=== PATIENT | female | born 1975 | race American Indian/Alaskan Native ===

== ENCOUNTER 2020-01-23 13:14 | Emergency (ER) | payer BC ==
[2020-01-23] MEDS ORDERED: hydrALAZINE 20 MG/1 ML INJ IV ONE ×2 (14:07→15:11)
[2020-01-23] MEDS ORDERED: methylPREDNISolone Sod Succinate 125 MG/2 ML INJ IV ONE (14:07)
[2020-01-23] MEDS ORDERED: ALBUTEROL 2.5 MG/3 ML NEBU IH ONE ×2 (14:08→16:58)
[2020-01-23] MEDS ORDERED: IPRATROPIUM 0.02% NEBU 2.5 ML IH ONE (14:08)
--- NOTE | 2020-01-23 14:26 | Emergency Department Report ---
HPI - General Chief Complaint: Dyspnea/Respdistress Time Seen by Provider: 01/23/20 13:53 - HPI HPI: 44-year-old -[place] female presents to the emergency department with a complaint of a 2-week history of shortness of breath, wheezing, coughing that she says is due to her COPD. The patient is a tobacco smoker and stopped smoking about 2 days ago. She also has a history of hypertension and presents with extremely elevated blood pressure. However she has been out of her blood pressure medications for the past 2 weeks. She does not have a primary care physician or jet man. No recent travel or sick contacts at home. She denies any fever, chest pain, nausea, vomiting or diaphoresis but does have a mixed dry and productive cough. ED Past Medical Hx - Past Medical History Previous Medical History?: Yes Hx Hypertension: Yes Hx COPD: Yes - Social History Smoking Status: Current Every Day Smoker Substance Use Type: Alcohol - Medications Home Medications: Home Medications Medication Instructions Recorded Confirmed Last Taken Type Albuterol INH(or & Nicu Only) 2 puff IH QID PRN #8.5 gram 01/23/20 Unknown Rx [ProAir HFA Inhaler] Furosemide [Lasix] 20 mg PO QDAY 01/23/20 01/23/20 01/16/20 History Potassium Citrate [Potassium 20 meq PO QDAY 01/23/20 01/23/20 01/16/20 History Citrate ER] amLODIPine 10 mg PO QDAY #30 01/23/20 Unknown Rx hydrALAZINE [Apresoline TAB] 10 mg PO TID #90 01/23/20 Unknown Rx predniSONE [Deltasone] 20 mg PO QDAY #4 tab 01/23/20 Unknown Rx ED Review of Systems ROS: Stated complaint: VICKY Other details as noted in HPI Comment: All other systems reviewed and negative Constitutional: denies: chills, fever Eyes: denies: eye pain, vision change ENT: denies: ear pain, throat pain Respiratory: cough, wheezing Cardiovascular: denies: chest pain, palpitations Gastrointestinal: denies: abdominal pain, vomiting Genitourinary: denies: dysuria, discharge Musculoskeletal: denies: back pain, arthralgia Skin: denies: rash, lesions Neurological: denies: headache, weakness Physical Exam - Physical Exam Vital Signs: Vital Signs 05/27/20 13:17 Temperature 97.8 F Pulse Rate 87 Respiratory 18 Rate Blood Pressure 262/122 O2 Sat by Pulse 97 Oximetry Physical Exam: GENERAL: The patient is well-developed well-nourished. HENT: Normocephalic. Atraumatic. Patient has moist mucous membranes. EYES: Extraocular motions are intact. NECK: Supple. Trachea is midline. CHEST/LUNGS: Mild wheezing throughout the chest. Mild tachypnea but no accessory muscle use. No cough heard during examination. There is no respira tory distress noted. HEART/CARDIOVASCULAR: Regular. There is no tachycardia. There is no murmur. ABDOMEN: Abdomen is soft, nontender. Patient has normal bowel sounds. There is no abdominal distention. SKIN: Skin is warm and dry. NEURO: The patient is awake, alert, and oriented. The patient is cooperative. Normal speech. MUSCULOSKELETAL: There is no tenderness or deformity. There is no evidence of acute injury. ED Course Vital Signs 01/23/20 13:17 Temperature 97.8 F Pulse Rate 87 Respiratory 18 Rate Blood Pressure 262/122 O2 Sat by Pulse 97 Oximetry ED Medical Decision Making - Lab Data Result diagrams: 01/23/20 14:47 01/23/20 14:47 - Radiology Data Radiology results: image reviewed interpreted by me: Chest x-ray does not show any acute process. There are no pleural effusions, o bvious pneumonia and there is no pneumothorax. - Medical Decision Making This patient presents to the emergency department with a two-week history of shortness of breath, wheezing and coughing. On examination she has some mild wheezing throughout the chest but does not appear in any respiratory or acute distress. Chest x-ray does not show any pneumonia, pleural effusions, or any other acute process. The patient received Solu-Medrol and a breathing treatment and upon reevaluation she is feeling improved. The patient presents with extremely elevated blood pressure but has been noncompliant with her medications over the past 2-week. She was given a few doses of IV antihypertensive medication with some improvement. Patient will be discharged home with a refill of her blood pressure medications, and albuterol inhaler, and a course of steroids. She has been given referrals for primary care. She will return to the emergency department with any worsening of her symptoms or any acute distress. Critical Care Time: No Critical care attestation.: If time is entered above; I have spent that time in minutes in the direct care of this critically ill patient, excluding procedure time. ED Disposition Clinical Impression: COPD exacerbation, Noncompliance with medication regimen Hypertension Qualifiers: Hypertension type: essential hypertension Qualified Code(s): I10 - Essential (primary) hypertension Disposition: TO HOME OR SELFCARE Is pt being admited?: No Condition: Stable Instructions: Chronic Obstructive Pulmonary Disease (ED), Hypertension (ED) Additional Instructions: Please follow-up with a primary care physician in the next few days. Return to the emergency department with any worsening of your symptoms or any acute distress. I am restarting you on your blood pressure medications. Take them as prescribed. Please try and stay away from foods that are high in salt and caffeinated products. Keep a blood pressure log. Please quit smoking. Prescriptions: amLODIPine 10 mg PO QDAY #30 hydrALAZINE [Apresoline TAB] 10 mg PO TID #90 predniSONE [Deltasone] 20 mg PO QDAY #4 tab Albuterol INH(or & Nicu Only) [ProAir HFA Inhaler] 2 puff IH QID PRN #8.5 gram PRN Reason: Shortness Of Breath Referrals: PRIMARY CAREMD [Primary Care Provider] - 3-5 Days SHARAN BLAIR MD [Staff Physician] - 3-5 Days [facility] [Provider Group] - 3-5 Days Forms: Work/School Release Form(ED) Time of Disposition: 18:07
--- NOTE | 2020-01-23 14:39 | XRay Report ---
CHEST 1 VIEW INDICATION: SOB. COMPARISON: None. FINDINGS: Support devices: None. Heart: Normal. Lungs/Pleura: No consolidation, effusion, or pneumothorax. There is mild peribronchial cuffing. IMPRESSION: 1. Mild peribronchial cuffing can be seen in the setting of lower airways disease. Signer Name: Nba Martines MD Signed: 01/23/2020 2:35 PM Workstation Name: [id number]
[2020-01-23] MEDS ORDERED: amLODIPine 5 MG TAB PO ONE (15:11)
[2020-01-23 15:20] LABS: Basophils % (Auto) 0.6 % (0.0-1.8); Eosinophils % (Auto) 13.2 % (0.0-4.3); Hematocrit 37.8 % (30.3-42.9); Hemoglobin 12.4 gm/dl (10.1-14.3); Lymphocytes % (Auto) 27.6 % (13.4-35.0); Mean Corpuscular HGB Conc 33 % (30-34); Mean Corpuscular Volume 85 fl (79-97); Monocytes # (Auto) 0.6 K/mm3 (0.0-0.8); Monocytes % (Auto) 8.6 % (0.0-7.3); Platelet Count 251 K/mm3 (140-440); Red Blood Count 4.43 M/mm3 (3.65-5.03)
[2020-01-23] MEDS ORDERED: MORPHINE 4 MG/1 ML INJ IV ONE (15:26)
[2020-01-23 15:35] LABS: INR 1.02 (0.87-1.13)
[2020-01-23 15:45] LABS: BUN/Creatinine Ratio 8; Blood Urea Nitrogen 8 mg/dL (7-17); Calcium 9.1 mg/dL (8.4-10.2); Hemolysis Index 2
[2020-01-23] MEDS ORDERED: IBUPROFEN 600 MG TAB PO ONE (15:45)
[2020-01-23] MEDS ORDERED: LORazepam 2 MG/ML VIAL IV ONE (15:46)
[2020-01-23] MEDS ORDERED: POTASSIUM CHLORIDE ER 10 MEQ TAB PO ONE (16:59)
[2020-01-23 18:43] VITALS: BP 175/109
== END 2020-01-23 18:50 | disposition home or self-care (01) ==
LOC: ED 13:14
DX: J44.1 Chronic obstructive pulmonary disease with (acute) exacerbation (principal); I10 Essential (primary) hypertension; F17.200 Nicotine dependence, unspecified, uncomplicated; Z91.14 Patient's other noncompliance with medication regimen; Z79.899 Other long term (current) drug therapy
CPT/HCPCS: 36415; 71045; 80048; 85025; 85610; 93005; 94640; 96374; 96375; 96376; 99284; J0360; J2060; J2930; 94644